=== PATIENT | female | born 1965 | race Two or more races ===

== ENCOUNTER 2025-09-29 09:10 | Day surgery (SDC) | payer MEDICARE, SELFPAY ==
--- NOTE | 2025-09-25 06:49 | EKG_ITS ---
[facility] Test Date: 2025-09-25 Pat Name: JEAN CLAUDE OROZCO Department: Room: - Gender: Female [employer]: KRYSTINA : 1965 Requested By: Pircila Hernández Order Number: [id number] Reading MD: Pricila Hernández Measurements Intervals [place] Rate: 68 P: 67 [place]: 210 QRS: 71 QRSD: 78 T: 85 QT: 391 QTc: 416 Interpretive Statements SINUS RHYTHM WITH FIRST DEGREE AV BLOCK No previous ECG available for comparison /[id number]/[email or web address]/[id number]
[2025-09-25 07:57] VITALS: BMI 26.7
[2025-09-25 08:52] LABS: Basophils # (Auto) 0.0 Thou/mm3 (0.0-0.2); Basophils % (Auto) 1 % (0-2.5); Eosinophils # (Auto) 0.0 Thou/mm3 (0.0-0.5); Eosinophils % (Auto) 0 % (0-10); Hematocrit 38.7 % (36.0-46.0); Hemoglobin 13.2 g/dL (12.0-16.0); Immature Granulocytes Auto 0.01 Thou/mm3 (0.00-0.00); Lymphocytes # (Auto) 1.6 Thou/mm3 (1.0-4.8); Lymphocytes % (Auto) 34 % (10-50); Mean Corpuscular HGB Conc 34.1 g/dl (31.0-37.0); Mean Corpuscular Hemoglobin 29.3 pg (25.0-35.0); Mean Corpuscular Volume 86 fL (80-100); Monocytes # (Auto) 0.3 Thou/mm3 (0.0-0.8); Monocytes % (Auto) 7 % (0-12); Neutrophils # (Auto) 2.7 Thou/mm3 (1.8-7.7); Neutrophils % (Auto) 58 % (37-80); Nucleated Red Blood Cell # 0.00 Thou/mm3 (0.00-0.00); Nucleated Red Blood Cell % 0 /100 WBC (0); Platelet Count 228 Thou/mm3 (140-440); RDW Standard Deviation 38.2 fL (36.4-46.3); Red Blood Count 4.51 Miln/mm3 (4.00-5.20); White Blood Count 4.6 Thou/mm3 (3.6-11.0)
[2025-09-25 09:03] LABS: Alanine Aminotransferase 13 U/L (10-49); Albumin, Serum 5.1 gm/dL (3.4-4.8); Albumin/Globulin Ratio 2.0 (1.2-2.2); Alkaline Phosphatase 62 U/L (46-116); Anion Gap 11 (7-16); Aspartate Amino Transferase 18 U/L (0-34); BUN/Creatinine Ratio 19 Ratio (12-20); Bilirubin,Total 0.5 mg/dL (0.3-1.2); Blood Urea Nitrogen 13 mg/dL (9-23); Calcium 9.8 mg/dL (8.3-10.6); Calcium (Corrected) 9.8 mg/dL (8.5-10.1); Carbon Dioxide 27.4 mMol/L (20.0-31.0); Chloride 105 mMol/L (98-107); Creatinine (Component) 0.7 mg/dL (0.6-1.3); Estimated Creatinine Clearance 71.5 mL/min (>60); Globulin 2.6 gm/dL (2.3-3.5); Glucose 99 mg/dL (74-106); Osmolality,Calculated 285 (275-295); Potassium 4.0 mMol/L (3.4-5.1); Sodium 143 mMol/L (136-145); Total Protein 7.7 gm/dL (5.7-8.2); eGFR > 60 See Note
[2025-09-29] VITALS (9 sets, daily range): BP systolic 118–137; BP diastolic 48–87; PULSE 60–76; RESP 12–19; TEMP 36.2–36.6; O2SAT 95–99; BMI 26.5
--- NOTE | 2025-09-29 10:35 | CHAP ---
Prayed with patient before they took her for her procedure.
--- NOTE | 2025-09-29 11:21 | SUR.PHASEI ---
Pt. arrived to recovery via gurney, eyes closed, oral airway in place upon arrival to recovery, oral airway removed upon pt. waking up, lung sounds clear, equal expansion jenn., pt. receiving 10 liters via oxymask, lap sites x4 to abdomen, dermabond intact, no active bleeding or redness noted, report received from Brendon PETERSON and Dr. Chase.
[2025-09-29] MEDS: fentaNYL CIT INJ 50 mCg/ML AMP 2ML IVP (11:32)
--- NOTE | 2025-09-29 11:34 | ESOP_ITS ---
Date of Procedure 09/29/25 Pre Op Diagnosis Symptomatic cholelithiasis Post Op Diagnosis Cholelithiasis with cholecystitis Procedure Laparoscopic cholecystectomy Findings Moderately distended gallbladder with multiple gallstones and chronic cholecystitis. Moderate amount of periumbilical adhesions from previous operation with loops of small bowel adherent to anterior abdominal wall Procedure Description Patient was brought into the operating room in supine position. After administration of general endotracheal anesthesia abdomen was prepped and draped in standard surgical manner. Patient has a laparotomy scar from previous operation. I elected to obtain pneumoperitoneum via left upper quadrant. A Veress needle was inserted in the left upper quadrant and pneumoperitoneum was obtained up to 15 mmHg. The Veress needle was then removed. A 5 mm incision was made in the right upper quadrant and the 5mm trocar was inserted. L aparoscopic camera was placed. The abdomen was inspected, patient was noted to have moderate amount of periumbilical adhesions from previous operation with loops of small bowel adherent into anterior abdominal wall. Under direct visualization laparoscopic camera and away from adhesions a 5 mm trocar was placed in supraumbilical area. The laparoscopic camera was placed through the supraumbilical port and under direct visualization a laparoscopic camera a 10 mm trocar was placed in subxiphoid and an additional 5 mm trocars placed in right upper quadrant. The gallbladder was identified and was noted to be moderately distended. It was retracted cephalad and laterally. Dissection started near the infundibulum of gallbladder where cystic duct and gallbladder junction clearly identified. The cystic duct was circumferentially dissected off the peritoneum and surrounding inflammatory tissue. The critical view of safety was clearly demonstrated. Cystic duct was then divided between 2 endoclips proximally and one distally. The cystic artery was similarly dissected and divided. The gallbladder was then from the liver bed using electrocautery. The gallbladder was then placed inside an Endo Catch and removed from the abdomen utilizing subxiphoid trocar site. The area was copiously and thoroughly washed and irrigated, all the fluid was suctioned and the suction fluid returned clear. Hemostasis achieved using electrocautery. Endoclips noted be in place and intact without any bleeding or any leakage. Hemostasis was adequate and satisfactory. The subxiphoid trocar sites fascial defect was closed with 0 Vicryl using Endo Closure device. Instruments and trocars removed, pneumoperitoneum was evacuated and the incisions closed with 4- 0 Monocryl in subcuticular fashion. Instrument needle and sponge counts were all reported to be correct X2. Patient tolerated the procedure well, was extubated, breathing spontaneously and without difficulty and was transferred to postanesthesia care in stable condition. Anesthesia GETA and local Pathology / specimen Other (Gallbladder and contents) Estimated Blood Loss 10 Condition Stable Disposition PACU Surgeon Pricila Hernández MD Surgical Staff Operation Date: 09/29/25 11:45 Case Staff Anesthesiologist: Km Chase RNcareer services assistant: Fani Negro
--- NOTE | 2025-09-29 11:45 | SUR.PHASEII ---
Pt. sitting up, tolerating oral fluids, VSS. Kulwant PETERSON assumed care of pt.
--- NOTE | 2025-09-29 11:45 | SUR.PHASEII ---
Assumed care over this pt at this time. report received from Archana Cardona. pt awake and alert, breathing unlabored on room air. v/s stable. pt dressing to abd dermabond x4 cdi.
[2025-09-29] MEDS: KETOROLAC INJ 30 MG/ML VIAL IVP (11:48)
[2025-09-29] MEDS: HYDROmorphone INJ 2 MG/ML VIAL 0.5 MG IVP (12:03)
--- NOTE | 2025-09-29 13:10 | SUR.PHASEII ---
pt awake and alert, breathing unlabored on room air. v/s stable. pt dressing to abd dermabond x4 cdi. pt able to ambulate to wheelchair with steady gait. d/c instructions given with Vikas using science interpreter Akshat ORO, all questions answered. pt d/c via wheelchair with all belongings.
== END 2025-09-29 13:10 | disposition home or self-care (01) ==
PROVIDERS: PCP Physician Assistant; Referring Provider Surgery; Visit Provider Surgery
PROC: 0FT44ZZ Resection of Gallbladder, Percutaneous Endoscopic Approach (ICD-10-PCS; CPT 47562; principal; 2025-09-29 11:30)
DX: K80.10 Calculus of gallbladder with chronic cholecystitis without obstruction (principal); Z01.810 Encounter for preprocedural cardiovascular examination; E78.00 Pure hypercholesterolemia, unspecified
CPT/HCPCS: 47562; 36415; 80053; 85025; 93005; A4217; A4649; J0131; J0694; J1100; J1171; J1885; J2371; J2405; J2704; J3010; J3490; J1596